=== PATIENT | male | born 1995 | race African-American/Black ===

== ENCOUNTER 2019-03-15 23:23 | Emergency (ER) | payer OTHER ==
[~2019-03-15] VITALS: Ht 175.3 cm; Wt 69.4 kg
[2019-03-16 00:07] VITALS: BP 116/73
== END 2019-03-16 00:01 | disposition home or self-care (01) | DRG 605 ==
LOC: ED 23:23
DX: S40.011A Contusion of right shoulder, initial encounter (principal); Y04.1XXA Assault by human bite, initial encounter; Y93.89 Activity, other specified; Y92.89 Other specified places as the place of occurrence of the external cause; Y99.0 Civilian activity done for income or pay